=== PATIENT | female | born 2000 | race Caucasian/White ===

== ENCOUNTER 2018-07-26 21:32 | Emergency (ER) | payer OTHER, SELFPAY ==
[2018-07-26 21:33] VITALS: BP 128/76; PULSE 94; RESP 18; TEMP 37.1; O2SAT 100; BMI 31.4
--- NOTE | 2018-07-26 21:49 | EKG12_ITS ---
Test Reason : SYNCOPE Blood Pressure : / mmHG Vent. Rate : 086 BPM Atrial Rate : 086 BPM P-R Int : 166 ms QRS Dur : 084 ms QT Int : 376 ms P-R-T Axes : 010 040 032 degrees QTc Int : 449 ms Normal sinus rhythm Normal ECG Confirmed by PAVITHRA GARCIA, YAYA ([id number]), editor book JUAN KRAUSE ([id number]) on 07/28/2018 2:29:49 PM Referred By: DALIA Confirmed By:YAYA ARSHAD MD
--- NOTE | 2018-07-26 21:51 | ED.DCSUM_ITS ---
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 She reports that she worked today from 4 to 6 PM. During this time she was lightheaded. She reports that she was also nauseated and vomited approximately 5 times. No blood or emesis. She denies any abdominal pain. States that she was walking home from work with, which is less than 10 minutes, and had a syncopal episode. She reports that she felt very lightheaded prior to this. She denied any chest pain, shortness of breath, or diaphoresis. She does report that she felt a heart rate was fast during this. She denies any injuri es. Physical Examination: Vitals: Stable. Afebrile. General: Well-nourished and well-developed. Head: Normocephalic atraumatic. Neck: Supple, no lymphadenopathy. No JVD. Nontender. Cardiovascular: Regular rate and rhythm. No murmurs. Respiratory: No respiratory distress. Clear to auscultation bilaterally. Abdominal: Soft, nontender, nondistended, normal bowel sounds. No guarding, rebound, or peritoneal signs. Back: Nontender. Extremities: Nontender, no edema. Skin: Normal color, no rash. Neurologic: Alert and oriented ?3. Cranial nerves II through XII are intact. Normal strength and sensation. Psych: Normal affect. Test Results: EKG is sinus at 86 with normal intervals, no evidence of Brugada syndrome or HOCM. CBC is marked for a white count of 11.8. Chem-7 is more for chloride 108. Parents test is negative. Emergency Department Course and Treatment: Patient had an IV placed. She had positive orthostatic vital signs. She was given a liter of normal saline. She is resting comfortably. Treatment Plan: Patient be discharged instructions to push fluids. Follow-up with Dr. Leonard and/or the [facility] center in 1-2 days if not improving. Return to the emergency department for any worsening symptoms. Disposition: To home in improved and stable condition. Impression: 1. Orthostatic hypotension. 2. Syncope. This note was generated with [employer] software. It may contain incorrect words, spelling, and punctuation that were not noted in review of the chart prior to signing ED Disposition - Plan for ED Patient: Chief Complaint: Nausea/Vomiting Instructions: ED Hypotension Orthostatic Prescriptions: Ondansetron [Zofran Odt] 4 mg PO Q8H PRN PRN #10 tablet PRN Reason: Nausea Referrals: Chuy Leonard MD [STAFF PHYSICIAN] - 1-2 Days if not improving [place],[facility] [GROUP OF PHYSICIANS] - 1-2 Days if not improving
[2018-07-26] MEDS: Ketorolac 30 MG/ML Syringe IV (21:54)
[2018-07-26] MEDS: 0.9% Normal Saline 1,000 ML 1000 ML IV (21:54)
[2018-07-26 21:56] VITALS: BP 127/90; BP 128/94; BP 129/91; PULSE 100; PULSE 113; PULSE 84
[2018-07-26 22:08] LABS: Absolute Lymphocyte Count 2.73 X10^3/ul (0.83-4.51); Basophil# 0.02 X10^3/uL; Basophil% 0.2 % (0-1); Eosinophil# 0.07 X10^3/uL; Eosinophils% 0.6 % (0-5); Hematocrit 39.8 % (37-47); Hemoglobin 13.5 g/dl (12.0-15.0); Lymphocyte # 2.73 X10^3/ul (4.0); Lymphocyte % 23.2 % (19-41); Mean Corp Hgb Conc 33.9 g/gl (32-36); Mean Corpuscular Hgb 31.2 pg (27.0-32.0); Mean Corpuscular Volume 91.9 fL (81-99); Mean Platelet Vol. 8.6 fl (6.2-12.0); Monocyte# 0.89 X10^3/uL; Monocyte% 7.6 % (0-10); Neutrophil # 8.02 X10^3/uL (2.7-7.7); Neutrophil % 68.2 % (47-70); Platelet Count 382 K/mm3 (150-450); RBC Distribution Width CV 12.6 % (11.6-14.6); RBC Distribution Width SD 42.4 fl (35.1-43.9); Red Blood Count 4.33 M/mm3 (4.2-5.4); White Blood Count 11.8 K/mm3 (4.4-11.0)
[2018-07-26 22:09] LABS: POSITIVE COUNT NO; POSITIVE DIFFERENTIAL NO; POSITIVE MORPHOLOGY NO
[2018-07-26 22:17] LABS: BUN 11 mg/dL (7-18); BUN/Creat Ratio 15.2 RATIO (10-20); Calcium,Total 9.2 mg/dL (8.5-10.1); Chloride 108 mmol/L (98-107); Creatinine, Serum 0.72 mg/dL (0.55-1.02); EST Glomerular Filtration Rate 109 mL/min (>60); Est Glom Filt Rate - Afr Amer 132 mL/min (>60); Estimated Creatinine Clearance 125.73 ml/min; Glucose 88 mg/dL (74-106); Potassium 3.8 mmol/L (3.5-5.1); Sodium Level 140 mmol/L (136-145)
[2018-07-26 22:18] LABS: Anion Gap 8 (5-15)
[2018-07-26 22:21] LABS: Pregnancy, Serum, hCG Quali. NEGATIVE Negative (0-9 Nonpreg)
[2018-07-26 22:45] VITALS: BP 123/79; PULSE 76; RESP 18; O2SAT 100
[2018-07-26 23:00] VITALS: BP 123/84; PULSE 90; RESP 20; O2SAT 96
--- OUTSIDE RECORDS SUMMARY | 2018-09-21 04:54 | XMS RPT_ITS ---
:2000 Author Organization [facility] Care Team Providers Name Role Phone Bruce Jones Attending Unavailable Primay Care Physicia, No Primary Care Unavailable PROBLEMS PROBLEMS No Problem Records FoundPROCEDURES PROCEDURES No Procedure Records FoundRESULTS RESULTS 12 LEAD ELECTROCARDIOGRAM Observed: 07/28/2018 Status: F Source: [place] 2:30 PM [facility] Cardiovascular Services [address] [place] [address] 12 Lead EKG 07/26/182 MR#: [id number] Acct: [id number] Name: HUSSEIN MARTEL Rep #: [id number] : 2000 18 From: Dru Arshad MD Attending Dr: Status: DEP ER Ordering Dr: Bruce Jones MD Date: 07/26/18 Location: ED Sex: F C Admitted: Test Reason : SYNCOPE Blood Pressure : / mmHG Vent. Rate : 086 BPM Atrial Rate : 086 BPM P-R Int : 166 ms QRS Dur : 084 ms QT Int : 376 ms P-R-T Axes : 010 040 032 degrees QTc Int : 449 ms Normal sinus rhythm Normal ECG Confirmed by DRU ARSHAD MD ([id number]), clinical editor JUAN KRAUSE ([id number]) on 07/28/2018 2:29:49 PM Referred By: DALIA Confirmed By:DRU ARSHAD MD 07/28/18 1429 Date Dru Arshad MD CC: No Primary Care Physician; Bruce Jones MD Signed EMERGENCY DEPARTMENT Observed: 07/26/2018 Status: F Source: [place] SUMMARY 11:11 PM [facility] Medical Records Department [address] [place] [address] Emergency Department Summary 07/26/18 2150 MR#: [id number] Acct: [id number] Name: HUSSEIN MARTEL Rep #: [id number] : 2000 18 From: Bruce Jones MD PCP: Care Physician, No Primary Status: DEP ER - ER Visit Summary Date of Service: 07/26/18 Chief Complaint: Syncope History of Present Illness: 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 She reports that she worked today from 4 to 6 PM. During this time she was lightheaded. She reports that she was also nauseated and vomited approximately 5 times. No blood or emesis. She denies any abdominal pain. States that she was walking home from work with, which is less than 10 minutes, and had a syncopal episode. She reports that she felt very lightheaded prior to this. She denied any chest pain, shortness of breath, or diaphoresis. She does report that she felt a heart rate was fast during this. She denies any injuries. Physical Examination: Vitals: Stable. Afebrile. General: Well-nourished and well-developed. Head: Normocephalic atraumatic. Neck: Supple, no lymphadenopathy. No JVD. Nontender. Cardiovascular: Regular rate and rhythm. No murmurs. Respiratory: No respiratory distress. Clear to auscultation bilaterally. Abdominal: Soft, nontender, nondistended, normal bowel sounds. No guarding, rebound, or peritoneal signs. Back: Nontender. Extremities: Nontender, no edema. Skin: Normal color, no rash. Neurologic: Alert and oriented 3. Cranial nerves II through XII are intact. Normal strength and sensation. Psych: Normal affect. Test Results: EKG is sinus at 86 with normal intervals, no evidence of Brugada syndrome or HOCM. CBC is marked for a white count of 11.8. Chem-7 is more for chloride 108. Parents test is negative. Emergency Department Course and Treatment: Patient had an IV placed. She had positive orthostatic vital signs. She was given a liter of normal saline. She is resting comfortably. Treatment Plan: Patient be discharged instructions to push fluids. Follow-up with Dr. Leonard and/or the [facility] in 1-2 days if not improving. Return to the emergency department for any worsening symptoms. Disposition: To home in improved and stable condition. Impression: 1. Orthostatic hypotension. 2. Syncope. This note was generated with [employer] dictation software. It may contain incorrect words, spelling, and punctuation that were not noted in review of the chart prior to signing ED Disposition - Plan for ED Patient: Chief Complaint: Nausea/Vomiting Instructions: ED Hypotension Orthostatic Prescriptions: Ondansetron [Zofran Odt] 4 mg PO Q8H PRN PRN #10 tablet PRN Reason: Nausea Referrals: Chuy Leonard MD [STAFF PHYSICIAN] - 1-2 Days if not improving Center,[facility] [GROUP OF PHYSICIANS] - 1-2 Days if not improving What to do if you have Problems For any increased pain, shortness of breath, bleeding, nausea or vomiting, chest pain, or any unexpected problems, contact your Primary Care Provider. Call [facility] ([phone]) or report to the closest Emergency Room. Call 911 if necessary. 07/26/18 2311 <Electronically signed by Bruce Jones MD> Date Bruce Jones MD Cosigner Signature (If Indicated): Date CC: No Primary Care Physician CBC W/DIFF, AUTOMATED Collected: 07/26/2018 Status: F Source: [facility] 9:55 PM [facility] REPOSITORY TYPE CODE TESTS RESULT OUT OF RANGE REFERENCE UNITS LAB L100.1000 4.4-11.0 K/mm3 High WBC 11.8 LAB L100.1200 4.2-5.4 M/mm3 Normal RBC 4.33 LAB L100.1300 12.0-15.0 g/dl Normal HGB 13.5 LAB L100.1400 37-47 % Normal HCT 39.8 LAB L100.1500 81-99 fL Normal MCV 91.9 LAB L100.1600 27.0-32.0 pg Normal MCH 31.2 LAB L100.1700 32-36 g/gl Normal MCHC 33.9 LAB L100.1810 11.6-14.6 % Normal RDW CV 12.6 LAB L100.1820 35.1-43.9 fl Normal RDW SD 42.4 LAB L100.1900 150-450 K/mm3 Normal PLT 382 LAB L100.2000 6.2-12.0 fl Normal MPV 8.6 LAB L100.2100 47-70 % Normal NEUT% 68.2 LAB L100.2200 19-41 % Normal LY% 23.2 LAB L100.2300 0-10 % Normal MONO% 7.6 LAB L100.2400 0-5 % Normal EO% 0.6 LAB L100.2500 0-1 % Normal BASO% 0.2 LAB L100.2550 0.0-0.9 % Normal IM GRAN % 0.200 Result Comment: IG% - Immature Granulocytes (promyelocytes, myelocytes and metamyelocytes) > 1% indicates that a LEFT SHIFT is Present. LAB L100.2620 2.0-7.7 X10 3/uL High Absolute Neut 8.0 LAB L100.2720 0.83-4.51 X10 3/ul Normal Absolute Lymph 2.73 Performed By: #### L100.0100 #### [facility] [address] [place], [address] BASIC METABOLIC Collected: 07/26/2018 Status: F Source: [facility] PROFILE ([facility]) 9:55 PM [facility] REPOSITORY TYPE CODE TESTS RESULT OUT OF RANGE REFERENCE UNITS LAB L501.0100 74-106 mg/dL Normal GLU 88 Result Comment: Please note revised GLUCOSE reference range effective 2017. LAB L501.1000 7-18 mg/dL Normal BUN 11 LAB L501.1100 0.55-1.02 mg/dL Normal CREAT,SERUM 0.72 Result Comment: The validity of the calculated GFR AND GFRAA in patients over 70 years has not been determined. Clinical correlation is essential. LAB L501.1110 >60 mL/min Normal EST GFR 109 Result Comment: Non- GFR Calc LAB L501.1115 >60 mL/min Normal EST GFR - AA 132 Result Comment: GFR Calc LAB L501.1255 ml/min Normal Estimated CRCL 125.73 LAB L501.1300 10-20 RATIO BUN/CRE Normal 15.2 LAB L501.2200 8.5-10 mg/dL .1 CA Normal 9.2 LAB L501.5300 136-14 mmol/L 5 NA Normal 140 LAB L501.5600 3.5-5. mmol/L 1 K Normal 3.8 LAB L501.5900 98-107 mmol/L High CL 108 LAB L501.6100 21.0-3 mmol/L 2.0 CO2 Normal 24.0 LAB L501.6200 5-15 GAP Normal 8 Performed By: #### L500.2500 #### [facility] [address] [place], [address] ,SERUM,HCG QUALI. Collected: Status: F Source: [place] 07/26/2018 9:55 PM [facility] REPOSITORY TYPE CODE TESTS RESULT OUT OF REFERENCE UNITS RANGE LAB L700.6700 =>Qualitative mIU/mL Normal HCG Qual < 1 triggr LAB L700.7000 0-9 Nonpreg Negative Normal HCGSQUAL NEGATIVE Performed By: #### L700.6800 #### [facility] [address] [facility] [place], [address] ALLERGIES ALLERGIES DATE TYPE / CODE NAME / CODE REACTION SEVERITY SOURCE 07/26/2018 Drug No Known Unknown [facility] Allergy/4160 Allergies/F00 Hospital 21370(SNOMED [id number](RXNOR Repository CT) M) ENCOUNTERS ENCOUNTERS ADMIT/DISCHARGE ACCOUNT ADMITTING ENCOUNTER LOCATION SOURCE NUMBER CLASS 07/26/2018/ [id number] Emergency [address] ing:ED Repository PAYERS PAYERS ENCOUNTER GUARANTOR PAYER SUBSCRIBER SOURCE 07/26/2018 HUSSEIN Allison Primary CARITO Topmost [id number] Insurance:ARGUSPolicy THOMPSONDOB: [facility] ASHLEY Number: [id number] [id number], [id number] [place]ository [place] [address]Rja: Date: [facility] [address] () [address], [place] [address]KT: 07/26/2018 Secondary NOT GIVENUNK Jennie Insurance:SELF PAY [facility]: Effective Repository Date:2018-07-26
== END 2018-07-26 23:10 | disposition home or self-care (01) ==
LOC: ED 22:26
PROVIDERS: Emergency Provider Emergency Medicine
DX: I95.1 Orthostatic hypotension (principal); R55 Syncope and collapse; J02.9 Acute pharyngitis, unspecified; R51 Headache; F90.9 Attention-deficit hyperactivity disorder, unspecified type; Z79.899 Other long term (current) drug therapy
CPT/HCPCS: 80048; 84703; 85025; 93005; 96361; 96374; 99285; J7030; A4216

== ENCOUNTER 2018-10-03 19:44 | Emergency (ER) | payer OTHER, SELFPAY ==
[2018-10-03 19:45] VITALS: BP 124/75; PULSE 92; RESP 17; TEMP 36.7; O2SAT 99; BMI 30.9
--- NOTE | 2018-10-03 21:23 | ED.VISSUMM ---
- ER Visit Summary Date of Service: 10/03/18 Chief Complaint: Left knee wound History of Present Illness: The patient is a 18 F who fell on the ice 1 week ago injuring her left knee. A laceration across the anterior knee. She did not seek treatment at that time. The area is slowly healing. She has noted some recent redness and drainage and is concerned it is becoming infected. Physical Examination: Vital signs unremarkable. Patient sitting upright in bed no acute distress. Left lower extremity examination significant for 2 cm old laceration to the anterior left knee with granulation tissue noted. There is mild surrounding erythema. No bony tenderness. Full range of motion noted. Test Results: [] Emergency Department Course and Treatment: Wound is cleansed and dressed. She will be treated with a course of Keflex for mild infection. Treatment Plan: [] Disposition: Discharge Impression: Left knee laceration, old-not sutured This note was generated with [employer] dictation software. It may contain incorrect words, spelling, and punctuation that were not noted in review of the chart prior to signing ED Disposition - Plan for ED Patient: Disposition: Home or Assisted Living Instructions: ED Wound Care Prescriptions: Cephalexin [Keflex] 500 mg PO Q6 #40 capsule
[2018-10-03] MEDS: Cephalexin 250 MG Capsule 500 MG PO (21:36)
== END 2018-10-03 21:38 | disposition home or self-care (01) ==
LOC: ED 21:34
PROVIDERS: Emergency Provider Emergency Medicine
DX: S81.012A Laceration without foreign body, left knee, initial encounter (principal); W00.9XXA Unspecified fall due to ice and snow, initial encounter; Y93.9 Activity, unspecified; Y92.9 Unspecified place or not applicable; F90.9 Attention-deficit hyperactivity disorder, unspecified type; Z79.899 Other long term (current) drug therapy; Z72.0 Tobacco use
CPT/HCPCS: 99283

== ENCOUNTER 2018-11-18 08:46 | Emergency (ER) | payer OTHER, SELFPAY ==
[2018-11-18 08:47] VITALS: BP 145/85; PULSE 79; RESP 15; TEMP 36.6; O2SAT 98; BMI 30.5
[2018-11-18] MEDS: Ondansetron ODT 4 MG Tablet 8 MG PO (10:15)
--- NOTE | 2018-11-18 11:17 | ED.DCSUM_ITS ---
- ER Visit Summary Date of Service: 11/18/18 Chief Complaint: Sore throat History of Present Illness: The patient is a 18 F 2-day history of sore throat. No fevers. Nausea without vomiting pain pain with swallowing. No sick contacts. Tonsillitis in July this past year. No allergies. No cough. Physical Examination: General: Alert and oriented ?3, no acute distress HEENT: Normocephalic, atraumatic. Moist mucosa membranes. 1+ symmetric tonsils uvula midline no trismus. Mild posterior pharyngeal erythema. Neck: supple, nontender. Cardiovascular: Regular rate and rhythm, no murmurs Respiratory: Normal breath sounds, symmetric, no distress Abdomen: Soft, nontender, nondistended Extremities: Nontender, no edema, pulses intact ?4 Neuro: no focal neurological deficits. Test Results: Rapid strep negative Emergency Department Course and Treatment: Rapid strep negative, Zofran, Decadron given. Symptoms improving. Discussed continue Tylenol Motrin oral fluids. Discussed throat culture is pending. Follow-up as an outpatient. All questions answered. Treatment Plan: [] Disposition: Discharge Impression: Acute pharyngitis This note was generated with [employer] dictation software. It may contain incorrect words, spelling, and punctuation that were not noted in review of the chart prior to signing ED Disposition - Plan for ED Patient: Disposition: Home or Assisted Living Diagnosis: Acute pharyngitis Instructions: ED Pharyngitis Viral Prescriptions: Ondansetron [Zofran Odt] 4 mg PO Q8H PRN PRN #10 tablet PRN Reason: Nausea Referrals: Care Physician,No Primary [Primary Care Provider] - Angelica Haskins MD [STAFF PHYSICIAN] - 3-5 Days
[2018-11-18 11:32] VITALS: BP 142/90; PULSE 93; RESP 18; O2SAT 96
== END 2018-11-18 11:32 | disposition home or self-care (01) ==
PROVIDERS: Emergency Provider Emergency Medicine
DX: J02.9 Acute pharyngitis, unspecified (principal); Z72.0 Tobacco use
CPT/HCPCS: 87880; 99283